=== PATIENT | female | born 1990 | race Caucasian/White ===

== ENCOUNTER 2016-06-15 14:27 | Emergency (ER) | payer OTHER ==
[~2016-06-15] VITALS: Ht 168.9 cm; Wt 92.7 kg
[~2016-06-15 14:27] MED LIST: CLIN-78 PO; FOLI1TAB18 PO; LIDO5CRE17 TOPICAL; LIDOCAINE TP; METO-301 PO; NPR500T PO; [UNRECOGNIZED DRUG - CODE] TP
[2016-06-15 14:36] VITALS: BP 96/60; PULSE 61; RESP 15; O2SAT 100
--- NOTE | 2016-06-15 14:55 | ED.REPORT ---
HPI-Rash / Abscess Date of Service Jun 15, 2016 ED Provider: Kentrell Abdul MD History of Present Illness: abscess on right buttocks seen on Wednesday opened and drained. did not get clindamycin filled. has been changing the dressing. Nursing Notes Stated Complaint: ABSCESS Chief Complaint: Skin Rash/Abscess Nursing Notes Reviewed: Yes Allergies: Coded Allergies: sulfamethoxazole (Verified Allergy, Severe, HIVES,RASH, 04/30/16) trimethoprim (Verified Allergy, Severe, HIVES,RASH, 04/30/16) vancomycin (Verified Allergy, Severe, 05/01/16) Angioedema adhesive tape (Verified Adverse Reaction, Severe, BRUISING, 04/30/16) clavulanic acid (Verified Adverse Reaction, Severe, N&V, 04/30/16) hydrocodone bitartrate (Verified Adverse Reaction, Severe, HORRIBLE HEADACHE, 04/30/16) potassium clavulanate (Verified Adverse Reaction, Severe, Nausea,Vomiting , 04/30/16) Scheduled Clindamycin (Clindamycin) 300 Mg Capsule 300 MG PO QID Clindamycin (Clindamycin) 300 Mg Capsule 300 MG PO QID Folic Acid (Folic Acid) 1 Mg Tablet 400 MCG PO DAILY Scheduled PRN ([Lidocaine]) 1 APPLIC TP Q4-6H PRN PRN PRN 2% Lidocaine Cream (Lidocaine Cream) 5 Gm Cream..g. 1 APPLIC TOPICAL PRN For Pain Metoclopramide (Reglan) 10 Mg Tablet 10 MG PO AC/HS PRN PRN For Dyspepsia or Heartburn Naproxen (Naproxen) 500 Mg Tab 500 MG PO BID PRN PRN For Pain Witch Twila (Tucks) 1 Each Med..pad 1 EACH TP Q4H PRN PRN PRN General Time Seen by MD: 14:54 Chief Complaint Abscess Hx Obtained From: Patient Onset Occurred: 5 days ago Symptom Duration: Since onset Past Medical History Past Medical History Migraine headaches Chronic back pain Interstitial cystitis Past Surgical History Cystoscopy and evaluation for interstitial cystitis D&C Reports: Tonsillectomy Family History noncontributory Smoking History Former Smoker Social History Alcohol Use: Denies alcohol use Drug Use: THC Other Social History: Good social support, Lives with children Ambulatory Status Independent Review of Systems Basic Review of Systems : No dysuria, No frequency Hematologic: No bleeding, No bruising Endocrine: No cold intolerance, No heat intolerance, No weight gain, No weight loss Neurologic: NL mental status, No weakness, No numbness Psychiatric: Normal thought content Physical Exam Initial Vital Signs Vital Signs (First) Date Time Temp Pulse Resp B/P Pulse Ox O2 Delivery O2 Flow Rate FiO2 06/15/16 14:36 36.4 61 15 96/60 100 Room Air Initial VS: Reviewed, Vital signs normal Head / Eyes: Atraumatic, Normocephalic, PERRL ENT: Mucous membranes moist, Conjunctiva normal, No scleral icterus Neck: Supple, Non-tender, Full range of motion Respiratory: Breath sounds normal, Clear to auscultation, No respiratory distress Cardiovascular: Regular rate & rhythm, Heart sounds normal, Intact distal pulses Abdomen / GI: Soft, Non-tender, No guarding, No rebound, No distention Back: No CVA tenderness Lymphatic: No lymphadenopathy Extremities: Vascular intact, Neuro intact, No swelling, No tenderness Neurologic: Alert, Oriented, Nonfocal Psychiatric: Mood/affect normal, Behavior normal, Normal thought content General/Constitutional: Awake, Alert, No acute distress, Well appearing, Well developed, Well hydrated Rash / Lesion Notes: site looks great! erthyma is resolved, patient with hypersensitivity to the lightest touch Respiratory / Chest: Atraumatic, Breath sounds NL, Breath sounds = bilat, No respiratory distress Cardiovascular: Heart rate NL, Regular rhythm, Heart sounds NL, No gallop Discharge & Departure Impression: Primary Impression: Abscess re-check Disposition: Home Patient Instructions: Abscess (ED) Additional Instructions: The site looks great! The redness has resolved completely. There is no need to start clindamycin at this time. Use bactroban to the site starting tomorrow after you remove the packing. Shower first and the apply the bactroban and then cover with a bandaid or use the nepali panties and apply gauze. The tape will leave tape residue ramos which can be difficult to remove. Use ibuprofen 800 mg up to 3 times a day if needed. Dr. Davila did a great job! Please follow in primary care. Referrals: Carlitos Stewart DO (PCP) EDSupervising Provider for APC: Mynor Zuleta DO copies to: Carlitos Stewart Sue ARNP Jun 15, 2016 14:55
[2016-06-23] MEDS ORDERED: docqlace (16:57)
[2016-06-23] MEDS ORDERED: IBUP800T28 PO (16:57)
== END 2016-06-15 15:29 | disposition home or self-care (01) ==
LOC: SED 14:27 → EDBD 14:27 → SED 15:29
DX: L02.31 Cutaneous abscess of buttock (principal); Z51.89 Encounter for other specified aftercare; Z87.891 Personal history of nicotine dependence; Z88.1 Allergy status to other antibiotic agents; Z88.2 Allergy status to sulfonamides; Z88.5 Allergy status to narcotic agent; Z88.8 Allergy status to other drugs, medicaments and biological substances

== ENCOUNTER 2016-06-26 05:31 | Day surgery (SDC) | payer OTHER ==
[~2016-06-26] VITALS: Ht 170.2 cm; Wt 87.0 kg
[2016-06-26] VITALS (10 sets, daily range): BP systolic 102–125; BP diastolic 39–61; PULSE 7–119; RESP 12–18; O2SAT 96–100
[~2016-06-26 05:31] MED LIST changes: -CLIN-78 PO; -FOLI1TAB18 PO; +IBUP800T28 PO; -LIDO5CRE17 TOPICAL; -LIDOCAINE TP; -METO-301 PO; -NPR500T PO; -[UNRECOGNIZED DRUG - CODE] TP; +docqlace
[2016-06-26] MEDS ORDERED: fentaNYL-PF 50 mCg/mL 2 mL Inj ONE (05:32)
[2016-06-26] MEDS: Lactated Ringer's 1,000 ML IV SCH ×2 (05:36→07:39)
--- NOTE | 2016-06-26 07:25 | PCM.HPANE ---
Patient Data Date of Service: Jun 26, 2016 Surgeon Admitting Provider: Attending Provider:Greg Mae MD Primary Care Physician:Carlitos Stewart DO Other Provider:Leonardo Haq Anesthesia Reason for Visit Family Planing Ht/WT & BMI Height (Feet): 5 Height (Inches): 7.00 Weight (Kilograms): 87.0 Body Mass Index 30.00 Allergies Coded Allergies: sulfamethoxazole (Verified Allergy, Severe, HIVES,RASH, 04/30/16) trimethoprim (Verified Allergy, Severe, HIVES,RASH, 04/30/16) vancomycin (Verified Allergy, Severe, 05/01/16) Angioedema adhesive tape (Verified Adverse Reaction, Severe, BRUISING, 04/30/16) clavulanic acid (Verified Adverse Reaction, Severe, N&V, 04/30/16) hydrocodone bitartrate (Verified Adverse Reaction, Severe, HORRIBLE HEADACHE, 04/30/16) potassium clavulanate (Verified Adverse Reaction, Severe, Nausea,Vomiting , 04/30/16) Past Anesthesia History Anesthesia History: Denies:: Abnormal Airway, Anesthesia Reactions, Difficult Intubation, Malignant Hyperthermia Diabetes History Hx Diabetes?: No MRSA MRSA: Yes (LT BUTTOCK ABCESS) Medications Hypertension Medication: No Home Meds Incl Beta [place]: No Reported Medications Ibuprofen 800 Mg [id number] Mg PO TID PRN For Pain Ref 0 06/23/16 [docqlace] No Conflict [id number] Mg PRN For Constipation 06/23/16 Discontinued Reported Medications Jorje Mattson (Tucks)1 Each Med..pad1 Each TP Q4H PRN PRN 04/30/16 Metoclopramide (Reglan)10 Mg [id number] Mg PO AC/HS PRN For Dyspepsia or Heartburn Ref 0 04/30/16 [Lidocaine] No Conflict Check1 Applic TP Q4-6H PRN PRN 2% 04/30/16 Folic Acid 1 Mg [id number] Mcg PO DAILY 30 Days 04/05/16 Lidocaine Cream 5 Gm Cream..g.1 Applic TOPICAL PRN For Pain 04/03/16 Discontinued Scripts Naproxen 500 Mg [id number] Mg PO BID PRN For Pain #30 TABLET Prov:Mynor Zuleta DO 06/12/16 Clindamycin 300 Mg [id number] Mg PO QID #28 CAPSULE Prov:Mynor Zuleta DO 06/12/16 Clindamycin 300 Mg [id number] Mg PO QID #30 CAPSULE Prov:Tomas Sam MD 04/25/16 History History of ENT Problems?: Yes HEENT History: Denies:: Abnormal Airway Difficult Intubation Hx of Heart Problems?: No Cardiovascular History: Denies:: Congestive Heart Failure Heart Murmur Hypertension Valvular Heart Disease Hx of Respiratory Problem?: Yes Respiratory History: Positive for:: Pneumonia (HX OF) Denies:: Asthma COPD Emphysema Oxygen Administration Tuberculosis Use of C-PAP Machine Use of Inhalers / NEBS Hx Neurologic Problems?: Yes Neurological History: Positive for:: Headaches Hx of GI Problems?: Yes Gastrointestinal History: Positive for:: Rectal Bleeding (INTERNAL HEMORRHOIDS ) Denies:: Gastroesphageal Reflux Hx of Problems?: Yes Genitourinary History: Positive for:: Urinary Tract Infection (hx of interstitial cystitis) HX of Peritoneal Dialysis: No Female Hx: Denies:: Currently Endometriosis Pelvic Inflammatory Problems with Breasts? Skin History: Positive for:: History Skin Disorders? (recent rt buttock abscess treated in ED 06/16/16) Denies:: Pressure Ulcers Hx Musculoskeletal Problems?: Yes Musculoskeletal History: Denies:: Back Injury (C/OF CHRONIC BACK PAIN) Fibromyalgia Joint Replacement Musculoskeletal Trauma Myasthenia Gravis Osteoarthritis Hx of Psycho/Social Problems?: No Hx Surgeries?: Yes (CYSTO,TONSILLECTOMY, d&c retained placenta) Hx Any Other Health Problems?: Yes Other History: Positive for:: Hospitalization (CHILDBIRTH) Denies:: Cancer Endocrine Disease Thyroid Disease History Blood Transfusions: Denies:: Blood Transfusions Hx Diabetes: No Hx Alcohol Use: NoHx Substance Use: Yes (THC) Smoking Status: Former Smoker Have You Smoked inLast 12 mo: No Stop/Bang S-Snoring: Do You Snore Loudly: No T-Tired: feel tired, fatigued: Yes O-Obsered: Observed not breath: No P-Blood Pressure: treated: No B- Body Mass Index > 35 kg/m2: No A- Age over 50: No N- Neck Large Circumference: No G- Gender Male: No AKIN Total Score: 1 AKIN Risk Assessment: Low Risk, <3 Yes Risk Assessment Category Category 1A: Patient has history of documented sleep apnea, and HAS NOT received any narcotic, sedative or anesthesia administration during this stay. Category 1B: Patient has history of documented sleep apnea, and HAS received any narcotic , sedative or anesthesia administration during this stay Category 2: Patient has SUSPECTED Obstructive Sleep Apnea, and HAS received any narcotic , sedative or anesthesia administration during this stay. Category 3: Patient has SUSPECTED Obstructive Sleep Apnea and HAS NOT received narcotic, sedative or anesthesia administration during this stay. Category 4: Outpatient in Procedural Areas with known sleep apnea or who screen positive for High Risk via the STOP/BANG questionnaire. Exam Exam Vital Signs Vital Signs Date Time Temp Pulse Resp B/P Pulse Ox O2 Delivery O2 Flow Rate FiO2 06/26/16 06:12 36.3 60 18 125/43 98 Room Air General Appearance: Alert, Oriented X3, Cooperative, No Acute Distress HEENT/AIRWAY: MP 2 Lungs: Clear to Auscultation, Normal Air Movement Heart: Exam Unremarkable, Regular Rate/Rhythm, No Murmurs/Rubs/Gallops Meds/Labs/Diagnostics Admission Meds Current Medications Lactated Ringer's (Lr) 1,000 ml @ 120 mls/hr Q8H20M IV Last administered on t 05:36; Start 06/26/16 at 05:00; Stop 06/26/16 at 13:19 Plan Impression Patient chart reviewed, patient interviewed and anesthestic plan with risks, benefits, and alternatives discussed, and informed consent obtained. NPO Status: 9pm ASA Physical Status: ASA2 Mod Systemic Disease Anesthetic Plan: GA Bene/Risks/Altern/Consents: Yes HP Complete Prior to Induction: Yes Tr Rothman MD Jun 26, 2016 07:25
[2016-06-26] MEDS ORDERED: Lactated Ringer's 500 ML IV PRN (07:39)
[2016-06-26] MEDS ORDERED: Lactated Ringer's 1,000 ML IV SCH (07:39)
[2016-06-26] MEDS ORDERED: Labetalol 5 mg/mL 4 mL Inj IV PRN (07:40)
[2016-06-26] MEDS ORDERED: HYDROmorphone 1 mg/mL Inj IVPUSH PRN (07:40)
[2016-06-26] MEDS ORDERED: fentaNYL-PF 50 mCg/mL 2 mL Inj IVPUSH PRN (07:40)
[2016-06-26] MEDS ORDERED: EPHEDrine Sulfate 50 mg/mL Inj IVPUSH PRN (07:40)
[2016-06-26] MEDS ORDERED: Ondansetron 2 mg/mL 2 mL Inj IVPUSH PRN ×2 (07:40→08:55)
[2016-06-26] MEDS ORDERED: Atropine 0.4 mg/mL Inj IVPUSH PRN (07:40)
[2016-06-26] MEDS ORDERED: hydrALAZINE 20 mg/mL Inj IVPUSH PRN (07:40)
[2016-06-26] MEDS ORDERED: Phenylephrine 10,000 mCg/mL Inj IVPUSH PRN (07:40)
[2016-06-26] MEDS ORDERED: MetoCLOpramide 5 mg/mL 2 mL Inj IVPUSH PRN (07:40)
[2016-06-26] MEDS ORDERED: Bupivacaine-MPF 0.5% W/EPI 30 mL Inj INJ ONE (08:40)
--- NOTE | 2016-06-26 08:59 | PCM.ANEP1 ---
Post Anesthesia Phase 1 PACU Phase 1 Assessment Date of Service: Jun 26, 2016 Vital Signs 36.7 125/79 118 12 100% FM Anesthetic Administered: GA Level of Alertness: Sleeping, hard to arouse DE LA TORRE's with Equal Strength: Yes Pain: No Nausea or Vomiting: No Oxygen Delivery: Simple Mask Lungs: Clear to Auscultation, Normal Air Movement Tr Rothman MD Jun 26, 2016 08:59
--- NOTE | 2016-06-26 09:06 | PCM.SURGOP ---
Surgical Operative Report Date of Service: Jun 26, 2016 Pre Operative Diagnosis 1. Sterilization Post Operative Diagnosis 1. Sterilization Procedure: 1. Laparoscopic bilateral tubal ligation using fulguration. Surgeon and Tool Coordinator: Surgeon: Greg Mae MD Assistants: Lien Ray MD, Dr. was necessary for this procedure to help with exposure and operating the camera. Indication for Procedure 25-year-old 1 para 1 with history of MRSA who desires permanent sterilization. Findings: Intraoperative findings showing a normal-appearing uterus fallopian tubes and ovaries bilaterally. Survey of the upper abdomen was normal. The appendix was normal in appearance. (see images taken) Procedure Details The patient was taken to the operating room where her general anesthesia was obtained without difficulty. She was placed in a lithotomy position in the [facility] and prepared and draped in the normal sterile fashion. An appropriate intraoperative timeout was performed with the surgical team. A sterile speculum was then inserted into the patient's vagina and the cervix was identified and a mPortlka uterine manipulator was inserted without difficulty. The speculum was removed. Our attention was then turned to patient's abdomen where the umbilicus was injected with 10 mL of half percent Marcaine with epinephrine. A varies needle was inserted at the base the patient's umbilicus into the peritoneal cavity. Needle aspirate and water drop test were negative and confirmatory. A pneumoperitoneum was obtained with CO2 gas to a pressure of 15 mmHg. An 11 mm skin incision was made adjacent patient's umbilicus and an 11 mm Applied balloon trocar was inserted directly into the patient's peritoneal cavity using the Visiport function of the device. Survey of the abdomen is as noted above. The patient was then placed in Trendelenburg position and the uterus was mobilized and both fallopian tubes were identified and followed out to the fimbriated end. The Kleppinger cautery device was then used to fulgurate a 3 cm , mid isthmic segment of both the right and left fallopian tubes. All instrument were then removed from the patient's peritoneal cavity and the pneumoperitoneum was released. The fascial incision was then reapproximated with a 0 Vicryl in a acfyno-bd-xzaog fashion. The skin was closed with 4-0 Monocryl in a subcutaneous fashion and Dermabond applied. All lap instrument and needle counts were correct times two at the endo of the procedure and the patient was taken to the recovery room awake and in good condition Complications There were no periprocedural complications identified. Surgical Specimen Removed: No Specimen sent to Pathology: No Anesthetic Plan: GA Grafts, Implants: None Output, Estimated Blood Loss: 0 Blood Administration during locke: No Catheters: None Post Operative Plan Discharge home when awake and stable. Greg Mae MD Jun 26, 2016 09:06
--- NOTE | 2016-06-26 09:09 | PCM.DIGYN ---
Surgical Discharge Instruction Dates of Hospitalization Date of Hospital Admission 06/26/2016 Providers Admitting Physician: Primary Care Physician: Carlitos Stewart DO Attending Physician: Greg Mae MD Diagnosis at Time of Discharge Post-operative diagnosis 1. Sterilization Problems: Diet Discharge Diet: No restrictions Activity Discharge Activity-General: Try not to overdue, Be up and about, No lifting > 10 pounds for 4-6 weeks Dressing and Incisional Care Dressing Care: Keep dressing clean, dry & intact Hygiene: May shower, Wash incision with soap & water, DO NOT soak incision under water Follow Up Plan Follow-up appointment: Weeks (2) Call your provider for: Fever, Chills, Shortness of breath, Drainage at incision, Increasing pain Greg Mae MD Jun 26, 2016 09:09
[2016-06-26] MEDS: HYDROmorphone 1 mg/mL Inj IVPUSH PRN ×2 (09:41→09:46)
[2016-06-26] MEDS: oxyCODONE-Acetamin 5-325 mg Tablet PO PRN ×2 (10:02→11:32)
--- NOTE | 2016-06-26 10:03 | PCM.ANEP2 ---
Post Anesthesia Evaluation ASA/CMS Post Anesthesia Date of Service: Jun 26, 2016 VS in Patient's Normal Range?: Yes Resp Stable; Airway Patent?: Yes CV Function & Hydration Stable: Yes Mental Status Recovered?: Yes Pain control Satisfactory?: Yes N/V Control Satisfactory?: Yes Tr Rothman MD Jun 26, 2016 10:03
== END 2016-06-26 23:59 | disposition home or self-care (01) ==
LOC: SAS 05:31
PROVIDERS: ATTEND Obstetrics & Gynecology
DX: Z30.2 Encounter for sterilization (principal); R51 Headache; Z87.891 Personal history of nicotine dependence